=== PATIENT | female | born 1950 ===

== ENCOUNTER → 2017-09-15 | Emergency (ER) | payer OTHER ==
[~2017-09-15] VITALS: Ht 167.6 cm; Wt 84.4 kg
[~2017-09-15] MED LIST: LIPITOR40 MG; VASOTEC20 M1
== END | disposition home or self-care (01) ==
LOC: ER 10:51
DX: R42 Dizziness and giddiness (principal)

== ENCOUNTER 2018-10-19 19:33 | Emergency (ER) | payer OTHER ==
[~2018-10-19] VITALS: Ht 167.6 cm; Wt 85.7 kg
[2018-10-19] MEDS ORDERED: COZAAR50 MG (19:44)
[2018-10-19] MEDS ORDERED: PRAVACHOL80 MG (19:44)
== END 2018-10-19 21:04 | disposition home or self-care (01) ==
LOC: ER 19:33
DX: M25.511 Pain in right shoulder (principal)

== ENCOUNTER 2018-12-15 14:25 | Emergency (ER) | payer OTHER ==
[~2018-12-15] VITALS: Ht 167.6 cm; Wt 84.8 kg
[~2018-12-15 14:25] MED LIST changes: +COZAAR50 MG; +PRAVACHOL80 MG
== END 2018-12-15 18:09 | disposition home or self-care (01) ==
LOC: ER 14:25
DX: M94.0 Chondrocostal junction syndrome [Tietze] (principal)

== ENCOUNTER 2020-02-03 11:34 | Emergency (ER) | payer OTHER ==
[~2020-02-03] VITALS: Ht 152.4 cm; Wt 85.7 kg
[2020-02-03] MEDS ORDERED: KETO10TA2 PO (15:46)
== END 2020-02-03 15:48 | disposition home or self-care (01) ==
LOC: ER 11:34
DX: M79.644 Pain in right finger(s) (principal); M25.512 Pain in left shoulder

== ENCOUNTER 2020-08-15 12:32 | Emergency (ER) | payer OTHER ==
[~2020-08-15] VITALS: Ht 167.6 cm; Wt 85.7 kg
[~2020-08-15 12:32] MED LIST changes: +KETO10TA2 PO
[2020-08-15] MEDS ORDERED: SUCRALFATE1 GM PO (12:43)
== END 2020-08-15 19:30 | disposition home or self-care (01) ==
LOC: ER 12:32
DX: S80.812A Abrasion, left lower leg, initial encounter (principal); W22.8XXA Striking against or struck by other objects, initial encounter; Y93.01 Activity, walking, marching and hiking; Y92.512 Supermarket, store or market as the place of occurrence of the external cause; Y99.8 Other external cause status